=== PATIENT | female | born 1985 | race Caucasian/White ===

== ENCOUNTER → 2016-10-04 | Outpatient (CLI) | payer OTHER | LOC: HPND 08:15 | PROVIDERS: ATTEND Obstetrics & Gynecology | DX: Z36 Encounter for antenatal screening of mother (principal) | CPT/HCPCS: 76805 ==

== ENCOUNTER → 2016-10-24 | Outpatient (CLI) | payer OTHER | LOC: HPND 10:19 | PROVIDERS: ATTEND Obstetrics & Gynecology | DX: O35.1XX0 Maternal care for (suspected) chromosomal abnormality in fetus, not applicable or unspecified (principal) | CPT/HCPCS: 76816 ==